=== PATIENT | female | born 1985 | race Hispanic/Latino ===

== ENCOUNTER 2016-11-22 19:00 | Emergency (ER) | payer SELFPAY ==
[2016-11-22 19:17] VITALS: BP 130/73; PULSE 75; RESP 16; TEMP 98.2; O2SAT 100
--- NOTE | 2016-11-22 20:11 | ED PDOC ---
HPI: General Adult Time Seen by Provider: 11/22/16 19:19 Chief Complaint (Nursing): Weakness/Neurological Deficit History Per: Patient History/Exam Limitations: no limitations Onset/Duration Of Symptoms: Hrs Additional Complaint(s): Lashae Schroeder is a 31 year old female, with no previous medical history, who presents to the ED with complaints of a pressure headache associated with chest tightness, sinuses clogging and skin tingling 30 minutes into her 2 hour long flight earlier today. Patient states symptoms of clogged sinuses and headache resolved but symptoms of chest tightness and skin tingling persist. Patient denies noting any leg swelling or shortness of breath. PMD: [facility] Past Medical History Reviewed: Historical Data, Nursing Documentation, Vital Signs Vital Signs: Last Vital Signs Temp 98.2 F 11/22/16 19:12 Pulse 75 11/22/16 19:12 Resp 16 11/22/16 19:12 BP 130/73 11/22/16 19:12 Pulse Ox 100 11/22/16 20:15 - Medical History PMH: No Chronic Diseases - Surgical History Surgical History: No Surg Hx - Family History Family History: States: Unknown Family Hx - Allergies Allergies/Adverse Reactions: Allergies Allergy/AdvReac Type Severity Reaction Status Date / Time No Known Allergies Allergy Verified 11/22/16 19:12 Review of Systems ROS Statement: Except As Marked, All Systems Reviewed And Found Negative Cardiovascular: Positive for: Chest Pain (tightness). Negative for: Palpitations Respiratory: Negative for: Shortness of Breath Musculoskeletal: Negative for: Leg Pain, Other (leg swelling ) Physical Exam - Reviewed Nursing Documentation Reviewed: Yes Vital Signs Reviewed: Yes - Physical Exam Appears: Positive for: Well, Non-toxic, No Acute Distress Head Exam: Positive for: ATRAUMATIC, NORMAL INSPECTION, NORMOCEPHALIC Skin: Positive for: Normal Color, Warm, Dry Eye Exam: Positive for: Normal appearance ENT: Positive for: Normal ENT Inspection Neck: Positive for: Normal, Painless ROM Cardiovascular/Chest: Positive for: Regular Rate, Rhythm Respiratory: Positive for: Normal Breath Sounds. Negative for: Decreased Breath Sounds, Accessory Muscle Use, Wheezing, Respiratory Distress Gastrointestinal/Abdominal: Positive for: Normal Exam, Bowel Sounds, Soft. Negative for: Tenderness Extremity: Positive for: Normal ROM, Capillary Refill (< 2 seconds ). Negative for: Tenderness, Pedal Edema, Calf Tenderness, Deformity, Swelling, Other ( homans sign) Neurologic/Psych: Positive for: Alert, Oriented - Laboratory Results Result Diagrams: 11/22/16 20:57 11/22/16 20:57 - ECG O2 Sat by Pulse Oximetry: 100 (RA) Pulse Ox Interpretation: Normal Medical Decision Making Medical Decision Making: Initial Impression: R/o Pulmonary Embolism Initial Plan: * labs * urine * urine dipstick * D-dimer * reevaluation 945PM: Pt. feeling well, gave results of tests, return precautions given ( worsening palpitations, cp, sob, or other concerning symptoms) Scribe Attestation: Documented by Caryn Valentin, acting as a scribe for Sang Pro MD. Provider Scribe Attestation: All medical record entries made by the Scribe were at my direction and personally dictated by me. I have reviewed the chart and agree that the record accurately reflects my personal performance of the history, physical exam, medical decision making, and the department course for this patient. I have also personally directed, reviewed, and agree with the discharge instructions and disposition. Disposition - Clinical Impression Clinical Impression: Paresthesias - Disposition Referrals: [facility] [Provider Group] Disposition: Routine/Home Disposition Time: 21:50 Condition: STABLE Instructions: Paresthesia (ED)
[2016-11-22 21:07] LABS: BASO % 0.2 % (0.0-2.0); EOS % 0.4 % (0.0-4.0); LYMPH # 2.5 K/uL (1.0-4.3); LYMPH % 21.6 % (20.0-40.0); MEAN CELL VOLUME 92.1 fl (81.0-99.0); MEAN CORPUSCULAR HEMOGLOBIN 30.5 pg (27.0-31.0); MEAN CORPUSCULAR HGB CONC 33.1 g/dL (33.0-37.0); MEAN PLATELET VOLUME 8.8 fl (7.2-11.7); MONO # 0.9 K/uL (0.0-0.8); MONO % 7.6 % (0.0-10.0); NEUT % 70.2 % (50.0-75.0); RED CELL DISTRIBUTION WIDTH 12.8 % (11.5-14.5); WHITE BLOOD COUNT 11.4 K/uL (4.8-10.8)
[2016-11-22 21:10] LABS: BLOOD UREA NITROGEN 14 mg/dl (7-17); CALCIUM 9.4 mg/dL (8.4-10.2); CARBON DIOXIDE 24 mmol/L (22-30); CHLORIDE 104 mmol/L (98-107); GFR AFRICAN-AMERICAN > 60; GLUCOSE,RANDOM 89 mg/dL (65-105); POTASSIUM 4.2 MMOL/L (3.6-5.0); SODIUM 138 mmol/l (132-148)
--- NOTE | 2016-11-23 13:58 | CARD ---
APPROVED REPORT EKG Measurement Heart [id number] <Conclusion> Sinus rhythm with sinus arrhythmia with short UT Otherwise normal ECG
== END 2016-11-22 22:05 | disposition home or self-care (01) ==
LOC: H.ER 19:00
DX: R51 Headache (principal); R20.2 Paresthesia of skin; R07.89 Other chest pain